=== PATIENT | female | born 1990 | race Asian ===

== ENCOUNTER 2017-06-22 23:30 | Emergency (ER) | payer OTHER ==
[~2017-06-22] VITALS: Ht 157.5 cm; Wt 72.7 kg
[2017-06-23 00:12] VITALS: BP 111/69
== END 2017-06-23 01:18 | disposition left against medical advice (07) ==
LOC: EMS 23:31
DX: K08.89 Other specified disorders of teeth and supporting structures (principal); R22.0 Localized swelling, mass and lump, head; Z53.21 Procedure and treatment not carried out due to patient leaving prior to being seen by health care provider

== ENCOUNTER 2017-06-23 08:59 | Emergency (ER) | payer OTHER ==
[~2017-06-23] VITALS: Ht 157.5 cm; Wt 72.6 kg
[2017-06-23 10:41] VITALS: BP 110/79
== END 2017-06-23 10:56 | disposition home or self-care (01) ==
LOC: EMS 08:59
DX: K08.89 Other specified disorders of teeth and supporting structures (principal)
CPT/HCPCS: 99283